=== PATIENT | female | born 1955 | race Caucasian/White ===

== ENCOUNTER 2017-01-05 13:54 | Emergency (ER) | payer OTHER ==
[2017-01-05 14:27] VITALS: RESP 16; TEMP 97.9
[2017-01-05] MEDS ORDERED: NORMAL SALINE 10 ML SYRINGE FLUSH IVP PRN (14:27)
[2017-01-05] MEDS ORDERED: Sodium Chloride 0.9% 1,000 ML PRIMARY IV ONE (14:27)
[2017-01-05] MEDS ORDERED: Metoclopramide Inj 10 MG/2 ML VIAL IVP ONE (14:27)
[2017-01-05] MEDS ORDERED: KETOROLAC 30 MG/1 ML VIAL IVP ONE (14:27)
[2017-01-05] MEDS ORDERED: diphenhydrAMINE 50 MG/1 ML VIAL IVP ONE (14:29)
--- NOTE | 2017-01-05 15:14 | DI ---
CT HEAD W/O CONTRAST,01/05/2017 2:28 PM: Clinical History: Head trauma and headache. Previous Exam: None at this facility. Findings: Multiple helically acquired CT images are obtained through the brain without contrast, and demonstrat e normal, symmetric ventricles and other CSF containing spaces. There is no mass, hemorrhage or midli ne shift. The surrounding soft tissue and osseous structures are unremarkable. Intraorbital structure s and paranasal sinuses are unremarkable. Impression: Normal CT head.
--- NOTE | 2017-01-05 20:33 | PDOC ---
Headache HPI - General Chief Complaint: Head Problem / Injury Stated Complaint: headache s/p concussion Date Seen by Provider: 01/05/17 Time Seen by Provider: 14:10 Source: POSITIVE: Patient, Spouse Exam Limitations: POSITIVE: No limitations Nurse's Notes Reviewed & Considered: Yes - History of Present Illness Initial Comments: The patient is a 61-year-old female. Patient states that on December 20 she slipped in some mud and fell backwards and struck the back of her head, possibly on a rock. She was seen in the emergency room in [place] at that time and had a scalp laceration repaired primarily. Patient states that she has since had a headache, primarily on the left side of the scalp. She was seen back in the emergency room in [place] on 26 December and again this morning. She's not had any imaging studies. She does complain of some dizziness since the accident. She states that she occasionally has some "blurriness" to the left eye. No sensory or motor symptoms. No vomiting. Body Location Affected: REPORTS: Head Timing: REPORTS: Constant Duration: >1 week (16 days, as above) Severity: Moderate Quality: REPORTS: "Pain" Context: REPORTS: Recent Head Injury (As above). DENIES: CO Exposure, Tick Bite , Insect Bite, Other Associated Symptoms: REPORTS: Sensitivity to Light, Dizziness. DENIES: Fever, Chills, Sweating, Problems with Vision, Visual Disturb Preceding, [place] Preceding, Typical of Prior Aura(s), Nausea, Vomiting, Neck Pain, Stiffness, Speech Problems, Weakness, Trouble Walking, Tingling, Numbness, Lightheadedness , Other Exacerbated by: REPORTS: Light Any Prior Injuries Related to Current Complaint?: Yes (as above) - Patient Home Medications Home Medications: Home Medications Diazepam 5 mg PO DAILY PRN 10/13/09 Hydrocodone Bit/Acetaminophen 5 mg PO 10/13/09 - Patient Allergies Allergies/Adverse Reactions: Allergies Allergy/AdvReac Type Severity Reaction Status Date / Time No Known Allergies Allergy Verified 01/05/17 14:07 Past Medical History - heen HEENT History: Denies History Cardiovascular History: Denies History Respiratory History: Denies History Gastrointestinal History: Denies History Genitourinary History: Denies History Endocrine History: Denies History Musculoskeletal History: Denies History Neurological History: Denies History Blood Disorders: Denies History Psychiatric History: Denies History History of Sexually Transmitted Diseases: No Female Reproductive History: Hysterectomy Obstetrical History: Denies History Cancer History: Denies History In Past Year Been Physically Harmed or Verbally Threatened: No History of MDRO: No History of Other Communicable Diseases: No Tobacco Use: Current Every Day Smoker Alcohol Use: None Substance Use Type: None Previous Surgical History: Yes Type / Date of Surgery: TOTAL HYST, LEFT SHOULDER ORIF, ORIF RIGHT WRIST. Significant Family History: No pertinent family hx Past Medical History Reviewed: Reviewed - No Changes ROS - Limitations ROS Limitations: No Limitations Constitution: REPORTS: Denies Symptoms Cardiovascular: REPORTS: Denies Cardiac Symptoms Respiratory: REPORTS: Denies Resp Symptoms Neurological: REPORTS: Headache, Dizziness Gastrointestinal: REPORTS: Denies GI Symptoms Endocrine: REPORTS: Denies Symptoms Musculoskeletal: REPORTS: Denies MS Symptoms Genitourinary: REPORTS: Denies Symptoms Eyes: REPORTS: Other (Photophobia) ENT: REPORTS: Denies Symptoms Skin: REPORTS: Denies Skin Symptoms Lympathic: REPORTS: Denies Lympathic Symptoms Immunologic: POSITIVE: Denies Symptoms Psychiatric: POSITIVE: Denies Psych Symptoms Headache Exam - General Appearance General Appearance: POSITIVE: Alert, Cooperative, No Acute Distress. NEGATIVE: No Evidence of Trauma (Well-healed scalp laceration mid parietal area) - HEENT Head / Face: POSITIVE: No Facial Swelling, Other (Well-healed scalp laceration mid parietal area) Eyes: POSITIVE: Inspection Normal, PERRL, EOM's Intact, Eyelids Uninjured, Conjunctivae Uninjured, No Nystagmus, No Globe Trauma, Sclera Normal, Normal Fundoscopic Exam, No Papilledema Ears: POSITIVE: Ears Normal Inspection, TM Normal Inspection, Auricle Normal, External Canal Normal Nose: POSITIVE: Inspection Normal, No Apparent Trauma, Nares Normal, No CSF Leak Oropharynx: POSITIVE: External Inspection Nml, Pharynx Inspect. Nml, Airway Intact, Voice Normal, Moist Mucous Membranes, No Oral Injury, Lips Normal, Gums Normal, No Drooling, No Thrush, Normal Gag Reflex Dental: POSITIVE: No Dental Injury - Pupil Size Pupil Size: 3 mm: Bilateral (PERRLA) - Neck Neck: POSITIVE: Normal Inspection, Supple - Respiratory / CVS Respiratory / CVS: POSITIVE: Chest Non-Tender, No Respiratory Distress, Heart Sounds Normal, Regular Rate/Rhythm, Breath Sounds Normal Peripheral Pulses: Radial (R): 2+, Radial (L): 2+ - Abdomen Abdomen: Soft: (All Quadrants), Normal Bowel Sounds: (All Quadrants), Denies Tenderness: (All Quadrants), No Splenomegaly: (All Quadrants), No Hepatomegaly: (All Quadrants), No Guarding: (All Quadrants), No Rebound: (All Quadrants), No Palpable Pulse: (All Quadrants), No Palpabale Mass: (All Quadrants), No Distention: (All Quadrants), No Rigidity: (All Quadrants) - Skin Skin: POSITIVE: Intact, Normal Palpation - Extremities Extremity: Non-Tender: (All Extremities), Normal ROM: (All Extremities), Normal Inspection: (All Extremities) - Neuro / Psych Higher Functions: POSITIVE: Alert, Oriented x3, Normal Speech, Mood Appropriate , Affect Appropriate Cranial Nerves: POSITIVE: Normal As Tested, No Evidence of Acute CVA Cerebellar: POSITIVE: Normal As Tested Sensorimotor: POSITIVE: No Motor Deficits, No Sensory Deficits, Reflexes Normal Images - Head Head: 1 - Area of headache 2 - Area of headache Headache Progress - Results Reviewed by me Xrays/CTs/US Reviewed by me: Yes Discussed with Radiologist: Yes Radiology Findings: CT scan head without contrast normal. - Patient's Progress Pain Medication Addressed: POSITIVE: Yes (Recommended Advil or Tylenol) School/Work Release Addressed: POSITIVE: Not Applicable Re-Examine Time:: 15:35 Re-Examine Comment: Patient hydrated with a liter of normal saline and given Reglan, 10 mg IV, then a drill 50 mg IV, and Toradol 30 mg IV, for suspected migraine headache. Headache is practically resolved on discharge. Patient reassured that I see no evidence of serious head trauma from her fall on 20 December. Status: POSITIVE: Improved, Pain Almost Comp Relieved - Consult Counseled: POSITIVE: Patient, Family, RE: Radiology Results, RE: DX, RE: Need for F/U Patient Care Time - Estimated PCT Patient Care Time (In Minutes): 40 Vital Signs - Recent Vital Signs Vital Signs: Vital Signs (Last 8 hours) Temp Pulse Resp BP Pulse Ox 01/05/17 14:14 97.9 F 89 16 126/116 94 - VS Reviewed Vital Signs Reviewed: Yes Discharge Clinical Impression: Migraine Discharge Disposition: Discharged to Home Condition: Stable Patient Instructions Given at Discharge: Migraine Headache (ED) Additional Instructions: I'm glad you're feeling better. He'll CAT scan was normal. There is no evidence of skull fracture, or bleeding under the skull or in the brain. I believe you're headache was mostly due to a migraine headache. Advil or Tylenol for any residual headache. Rest today. Follow-up with your primary care provider. Return here anytime if condition worsens in any way. Follow Up With: NONE,NONE [Primary Care Provider] - (Instructions as above. Follow-up with your primary care provider. Return here as necessary.)
== END 2017-01-05 15:50 | disposition home or self-care (01) ==
LOC: ER 13:54
DX: G43.009 Migraine without aura, not intractable, without status migrainosus (principal); R42 Dizziness and giddiness; H53.8 Other visual disturbances
CPT/HCPCS: 70450; 96361; 96374; 96375; 99282; 99283; J1200; J1885; J2765; J7030